=== PATIENT | female | born 1970 | race Caucasian/White ===

== ENCOUNTER 2024-11-12 12:39 | Outpatient (CLI) | payer OTHER, SELFPAY ==
--- NOTE | 2024-11-12 13:00 | CRLHL7_ITS ---
For Patients: As a result of the Century Cures Act, medical imaging exams and procedure reports are released immediately into your electronic medical record. You may view this report before your referring provider. If you have questions, please contact your health care provider. INDICATION: Left-sided facial numbness. TECHNIQUE: Sagittal T1 axial FLAIR T2 diffusion-weighted gadolinium-enhanced axial T1 images of the entire brain. Thin section T2 space and gadolinium-enhanced fat saturated axial and coronal T1 weighted images with attention to cranial nerves. FINDINGS: Lateral 3rd and 4th ventricles normal in size and shape. There is no evidence of acute ischemic infarction. There no areas of diffusion restriction. No mass effect or shift of midline. There are few scattered foci of FLAIR/T2 hyperintensity within cerebral white matter consistent with chronic small vessel ischemic changes. No enhancing intra-axial or extra-axial lesion. The cisternal segments of the trigeminal nerves, Meckel`s caves and cavernous sinuses appear normal and symmetrical. No pathologic enlargement or enhancement of the trigeminal nerves or branches seen. Inflammatory mucosal thickening involves the bilateral maxillary and ethmoid sinuses with associated air-fluid levels. Metallic dental artifact is more prominent on the left side of face. IMPRESSION: 1. Inflammatory mucosal thickening and air-fluid levels in the maxillary greater than ethmoid sinuses bilaterally. 2. No evidence of acute intracranial abnormality. 3. Signal changes consistent with mild chronic microvascular ischemia. 4. No focal cranial nerve lesions seen. Dental artifact. Dictated by Rayo Syed MD @ 11/13/2024 8:06:50 AM (Electronically Signed)
== END 2024-11-12 12:40 | disposition home or self-care (01) ==
PROVIDERS: PCP Family Medicine; Visit Provider Otolaryngology
DX: R20.0 Anesthesia of skin (principal); J32.0 Chronic maxillary sinusitis
CPT/HCPCS: 70553; A9575

== ENCOUNTER 2024-12-09 13:03 | Outpatient (CLI) | payer OTHER, SELFPAY ==
--- NOTE | 2024-12-09 13:00 | CRLHL7_ITS ---
For Patients: As a result of the Century Cures Act, medical imaging exams and procedure reports are released immediately into your electronic medical record. You may view this report before your referring provider. If you have questions, please contact your health care provider. Indication: Chronic sinusitis. Technique: Noncontrast CT of the paranasal sinuses with multiplanar reconstruction utilizing bone and soft tissue algorithms. Comparison: Correlated with MR brain dated 11/12/2024. Findings: Frontal sinuses: Clear. Anatomic variant type 3 right frontal cell. Maxillary sinuses: Small retention cyst versus polyp within the left maxillary alveolar recess. Otherwise clear with patent ostiomeatal complexes. Ethmoid sinuses: Trace mucosal thickening. Small mucosal polyp in the left anterior ethmoid air cells. Sphenoid sinuses: Clear with patent ostia. Left sphenoethmoidal air cell. Nasal cavity: Mild leftward curvature of the nasal septum. No large septal spur. Impression: 1. Trace mucosal thickening within the ethmoid sinuses. 2. Small postinflammatory mucosal polyps versus retention cysts in the left maxillary alveolar recess and anterior ethmoid air cells. 3. Mild leftward curvature of the nasal septum. Please note that all CT scans at this facility use dose modulation, iterative reconstruction, and/or weight-based dosing when appropriate to reduce radiation dose to as low as reasonably achievable. Dictated by Jhoan Morin MD @ 12/09/2024 4:10:01 PM (Electronically Signed)
== END 2024-12-09 13:04 | disposition home or self-care (01) ==
LOC: CT 13:03
PROVIDERS: PCP Family Medicine; Visit Provider Otolaryngology
DX: J32.9 Chronic sinusitis, unspecified (principal); J34.2 Deviated nasal septum
CPT/HCPCS: 70486

== ENCOUNTER 2024-12-10 11:02 | Outpatient (CLI) | payer OTHER, SELFPAY ==
--- NOTE | 2024-12-17 11:48 | W.PM.SLEEP ---
Sleep Study Details Details Interpreting Provider: Walter Date of Sleep Study: 12/10/24 Sleep Study Details: STUDY TYPE:? Home unattended ? BMI:? 25.4 ORDERING PROVIDER:? Walter INDICATION:? Concerned about sleep apnea ? SLEEP SUMMARY:? 458 minutes monitored RESPIRATORY SUMMARY:? AHI 3.9 Low oxygen 89 Snoring 93% PERIODIC LIMB MOVEMENTS OF SLEEP:? Not recorded CARDIAC:? Range 71-103, mean 79.5 beats per minute IMPRESSION:? Primary snoring. This study does not demonstrate clinically significant obstructive sleep apnea. RECOMMENDATION: If sleep disorder strongly suspected recommend in-lab study or repeat study with sedative hypnotic agent.
== END 2024-12-10 11:03 | disposition home or self-care (01) ==
LOC: SLEEP 11:03
PROVIDERS: PCP Family Medicine; Visit Provider Otolaryngology
DX: R06.83 Snoring (principal)
CPT/HCPCS: 95806